=== PATIENT | male | born 1995 | race Two or more races ===

== ENCOUNTER 2019-02-25 21:47 | Emergency (ER) | payer SELFPAY ==
[~2019-02-25] VITALS: Ht 180.3 cm; Wt 83.9 kg
[2019-02-25 22:08] VITALS: Ht 180.3 cm; Wt 83.9 kg
[2019-02-25 22:49] LABS: microscopic required? NO
[2019-02-25 23:00] LABS: urine erythrocyte NEGATIVE (NEGATIVE)
[2019-02-26 00:23] VITALS: BP 146/82
== END 2019-02-26 00:23 | disposition home or self-care (01) ==
LOC: ED 21:47
PROVIDERS: Emergency Medicine
DX: N50.812 Left testicular pain (principal)
CPT/HCPCS: 87491; 87591; Q0092